=== PATIENT | female | born 1980 | race African-American/Black ===

== ENCOUNTER 2017-01-10 08:56 | Emergency (ER) | payer BC ==
[~2017-01-10 08:56] MED LIST: ALLI; AUGMENTIN PO; CERTAGEN PO
== END 2017-01-10 09:30 | disposition home or self-care (01) ==
LOC: SED 08:56
DX: R11.2 Nausea with vomiting, unspecified (principal); J30.2 Other seasonal allergic rhinitis; Z91.040 Latex allergy status
CPT/HCPCS: 99282